=== PATIENT | female | born 1960 | race Caucasian/White ===

== ENCOUNTER 2017-04-10 18:19 | Emergency (ER) | payer OTHER ==
[2017-04-10 19:33] VITALS: BP 146/72
--- NOTE | 2017-04-10 20:29 | UC ---
Skin Complaint HPI - HPI Summary HPI Summary: Abscess left lower abdomen getting worse over the past 2-3 days - History of Current Complaint Chief Complaint: UCSkin Time Seen by Provider: 04/10/17 20:21 Stated Complaint: ABSCESS Hx Obtained From: Patient Hx Last Menstrual Period: erratic ?: No Onset/Duration: Gradual Onset, Lasting Days - 3, Still Present Timing: Constant Onset Severity: Moderate Current Severity: Moderate Pain Intensity: 6 Pain Scale Used: 0-10 Numeric Location: Discrete - left lower abdomen Character: Pain, Redness, Painful Aggravating: Touch Alleviating: Nothing Associated Signs & Symptoms: Positive: Negative - Allergy/Home Medications Allergies/Adverse Reactions: Allergies Allergy/AdvReac Type Severity Reaction Status Date / Time Penicillins [PCN] Allergy Unknown Anaphylatic Verified 04/10/17 19:34 Shock Codeine AdvReac Headache Verified 04/10/17 19:34 Erythromycin AdvReac GI Upset Verified 04/10/17 19:34 Home Medications: Home Medications Amitriptyline TAB* [Elavil TAB*] 04/10/17 [History] Review of Systems Constitutional: Negative Skin: Other - abscess left lower abdomen Eyes: Negative ENT: Negative Respiratory: Negative Cardiovascular: Negative Gastrointestinal: Negative Genitourinary: Negative Motor: Negative Neurovascular: Negative Musculoskeletal: Negative Neurological: Negative Psychological: Negative All Other Systems Reviewed And Are Negative: Yes PMH/Surg Hx/FS Hx/Imm Hx Previously Healthy: No - insomnia Endocrine History: Hypothyroidism - Surgical History Surgical History: Yes Surgery Procedure, Year, and Place: L knee surgery 2008 torn meniscus; tonsils; - Family History Known Family History: Positive: None - Social History Occupation: Employed Full-time Lives: With Family Alcohol Use: Rare Substance Use Type: None Smoking Status (MU): Heavy Every Day Tobacco Smoker Type: Cigarettes Amount Used/How Often: 1 1/2 PPD Length of Time of Smoking/Using Tobacco: 37 years Have You Smoked in the Last Year: Yes Household Exposure Type: Cigarettes Cessation Counseling: Patient Advised to Stop Physical Exam Triage Information Reviewed: Yes Appearance: Well-Appearing, No Pain Distress, Well-Nourished Vital Signs: Initial Vital Signs Temp 98.4 F 04/10/17 19:30 Pulse 68 04/10/17 19:30 Resp 18 04/10/17 19:30 BP 146/72 04/10/17 19:30 Pulse Ox 100 04/10/17 19:30 Vital Signs Reviewed: Yes Eye Exam: Normal Eyes: Positive: Conjunctiva Clear ENT Exam: Normal ENT: Positive: Normal ENT inspection, Hearing grossly normal, Pharynx normal. Negative: Nasal congestion, Nasal drainage, Trismus, Muffled/hoarse voice Dental Exam: Normal Neck exam: Normal Neck: Positive: Supple, Nontender, No Lymphadenopathy Respiratory Exam: Normal Respiratory: Positive: Chest non-tender, No respiratory distress, No accessory muscle use Cardiovascular Exam: Normal Cardiovascular: Positive: RRR, Pulses Normal, Brisk Capillary Refill Musculoskeletal Exam: Normal Musculoskeletal: Positive: Strength Intact, ROM Intact, No Edema Neurological Exam: Normal Neurological: Positive: Alert, Muscle Tone Normal Psychological Exam: Normal Psychological: Positive: Normal Response To Family Skin Exam: Normal Skin: Positive: Other - 3 cm erythema lower left abdomen with 1.5 cm fluctulant center Re-Evaluation - Re-Evaluation First Eval Re-Evaluation Time: 21:00 - moderate amont of purulent drainage dsd applied Change: Improved Course/Dx - Course Course Of Treatment: Warm compress, dressing, bactrim, education regarding elevated blood pressure - Differential Diagnoses - Skin Complaint Differential Diagnoses: Cellulitis, Contact Dermatitis, Other - Incision and Drainage of abscess left abdomen, high blood pressure with out dx of hypertension, nicotine dependent - Diagnoses Provider Diagnoses: Abscess, nicotine dependent, elevated BP with dx of hypertension Procedures - Incision and Drainage Site: left lower abdomen Anesthesia: Local - 2 cc of 1% lidocaine Instrument(s): Scalpel Packing: Other - none Discharge - Discharge Plan Condition: Stable Disposition: HOME Prescriptions: Sulfamethox/Trimethoprim DS* [Bactrim DS 800/160 TAB*] 1 tab PO BID #18 tab Patient Education Materials: Abscess (ED), DASH Eating Plan (ED), Hypertension (ED), Incision and Drainage (ED), Warm Compress or Soak (ED) Ref[place]: [facility] [Outside] - 2 Weeks
[2017-04-10] MEDS ORDERED: Lidocaine 1% MPF* 2 ML VIAL INJ ONE (20:31)
[2017-04-10] MEDS ORDERED: Sulfamethox/Trimethoprim DS 800/160* TAB PO ONE ×2 (20:36)
== END 2017-04-10 21:10 | disposition home or self-care (01) ==
LOC: UCEAST 18:19
DX: L02.211 Cutaneous abscess of abdominal wall (principal); F17.200 Nicotine dependence, unspecified, uncomplicated; I10 Essential (primary) hypertension
CPT/HCPCS: 99212; A9270-GY; G0463

== ENCOUNTER 2017-05-05 11:43 | Emergency (ER) | payer OTHER ==
[2017-05-05 11:56] VITALS: BP 143/80
--- NOTE | 2017-05-05 12:16 | UC ---
HPI BURN - HPI Summary HPI Summary: slept with a heat pack on left shoulder breast awoke with burn and blister to breast - History of Current Complaint Chief Complaint: UCBurn Stated Complaint: BURN ON BREAST Time Seen by Provider: 05/05/17 12:07 Hx Obtained From: Patient Hx Last Menstrual Period: erratic Occurred: Hours Ago Length of Exposure: Hours Onset Severity: Moderate Current Severity: Moderate Pain Intensity: 8 - ice applied with decrease pain Pain Scale Used: 0-10 Numeric Character: Direct Thermal Contact Aggravating: Other - shirt and bra rubbing Alleviating: Cool Soaks Associated Signs & Symptoms: Positive: Negative Occupational Injury: No - Allergy/Home Medications Allergies/Adverse Reactions: Allergies Allergy/AdvReac Type Severity Reaction Status Date / Time Penicillins [PCN] Allergy Unknown Anaphylatic Verified 05/05/17 11:50 Shock Codeine AdvReac Headache Verified 05/05/17 11:50 Erythromycin AdvReac GI Upset Verified 05/05/17 11:50 Home Medications: Home Medications Ibuprofen TAB* [Advil TAB*] 05/05/17 [History] PMH/Surg Hx/FS Hx/Imm Hx Endocrine History: Hypothyroidism - Surgical History Surgical History: Yes Surgery Procedure, Year, and Place: L knee surgery 2008 torn meniscus; tonsils; - Family History Known Family History: Positive: None Family History: no medical issues reported in family lineage - Social History Occupation: Employed Full-time Lives: With Family Alcohol Use: Rare Substance Use Type: None Smoking Status (MU): Heavy Every Day Tobacco Smoker Type: Cigarettes Amount Used/How Often: 1 1/2 PPD Length of Time of Smoking/Using Tobacco: 37 years Have You Smoked in the Last Year: Yes Household Exposure Type: Cigarettes Cessation Counseling: Patient Advised to Stop - Immunization History Most Recent Tetanus Shot: less then 10 years Hx Tetanus, Diphtheria Vaccination: Yes Vaccination Up to Date: Yes Review of Systems Constitutional: Negative Skin: Negative, Other - blister on left breat right upper quad. of breast, some erythema Eyes: Negative ENT: Negative Respiratory: Negative Cardiovascular: Negative Gastrointestinal: Negative Genitourinary: Negative Motor: Negative Neurovascular: Negative Musculoskeletal: Negative Neurological: Negative Psychological: Negative All Other Systems Reviewed And Are Negative: Yes Physical Exam Triage Information Reviewed: Yes Appearance: Well-Appearing, No Pain Distress, Well-Nourished Vital Signs: Initial Vital Signs Temp 97.1 F 05/05/17 11:46 Pulse 72 05/05/17 11:46 Resp 12 05/05/17 11:46 BP 143/80 05/05/17 11:46 Pulse Ox 99 05/05/17 11:46 Vital Signs Reviewed: Yes Eye Exam: Normal Eyes: Positive: Conjunctiva Clear ENT Exam: Normal ENT: Positive: Normal ENT inspection, Hearing grossly normal, Nasal congestion. Negative: Tonsillar swelling, Tonsillar exudate Dental Exam: Normal Neck exam: Normal Neck: Positive: Supple, Nontender Respiratory Exam: Normal Respiratory: Positive: Chest non-tender, No respiratory distress, No accessory muscle use Cardiovascular Exam: Normal Cardiovascular: Positive: RRR, Pulses Normal, Brisk Capillary Refill Musculoskeletal Exam: Normal Musculoskeletal: Positive: Strength Intact, ROM Intact, No Edema Neurological Exam: Normal Neurological: Positive: Alert, Muscle Tone Normal Psychological Exam: Normal Skin: Positive: Other - partial thickness burn right medial aspect of breat intact blister at 9:00 just next to nipple Burn Calculation - Trunk / Ant. 18% Trunk / Ant. % 1st De - less than 1% Trunk / Ant. % 2nd De - leass than 1% - Total 1st Deg Total: 1 2nd Deg Total: 1 Total % BSA: 2 - [place] Formula for Fluid Resuscitation Weight: 72.575 kg Total % BSA 2nd & 3rd Degree: 1 24 -Hour Fluid Replacement: 290.3 Course/Dx Burn - Course Course Of Treatment: bactrim, silvadene, acute wound care, ibuprofen and cool compress follow bp and smoking as well with pcp - Differential Dx - Burn Differential Diagnoses: Chemical Burn, Direct Contact Thermal Burn, Electrical Burn - Diagnoses Clinic Provider Diagnoses: thermal lurn less than 1% to left breast, highblood pressure with out dx of hypertension, nicotine dependent Discharge - Discharge Plan Condition: Stable Disposition: HOME Patient Education Materials: Superficial Burn (ED), Second Degree Burn (ED), How to Stop Smoking (ED), Hypertension (ED) Referrals: Antonino Gordon MD [Primary Care Provider] - 1 Week
== END 2017-05-05 12:29 | disposition home or self-care (01) ==
LOC: UCEAST 11:43
DX: T21.21XA Burn of second degree of chest wall, initial encounter (principal); T31.0 Burns involving less than 10% of body surface; X19.XXXA Contact with other heat and hot substances, initial encounter; Y93.9 Activity, unspecified; Y92.9 Unspecified place or not applicable; E03.9 Hypothyroidism, unspecified; Z88.1 Allergy status to other antibiotic agents; Z88.5 Allergy status to narcotic agent; Z88.0 Allergy status to penicillin; F17.210 Nicotine dependence, cigarettes, uncomplicated
CPT/HCPCS: 99212; G0463

== ENCOUNTER 2017-05-18 15:51 | Emergency (ER) | payer OTHER ==
[2017-05-18 16:00] VITALS: BP 127/76
--- NOTE | 2017-05-18 16:06 | UC ---
HPI BURN - HPI Summary HPI Summary: 05/05/17 came to urgent care after sleeping with a hot pack on her left chest, returns today as it has resolved all but a quarter size area on left breast at 7 :00 does have about 3 mm of surrounding erythema and is tender to touch no drainage-patient reports that she got open light cleaner on her breast-with burning a few days back where unhealing area is at - History of Current Complaint Chief Complaint: UCSkin Stated Complaint: INFECTED BREST Time Seen by Provider: 05/18/17 16:00 Hx Obtained From: Patient Hx From Patient Unobtainable Due To: Dementia Hx Last Menstrual Period: erratic Occurred: Minutes Ago Length of Exposure: Unknown Onset Severity: Moderate Current Severity: Moderate Pain Intensity: 7 Pain Scale Used: 0-10 Numeric Location: Trunk - left breat about 7;00 Character: Direct Thermal Contact, Scald, Chemical, Blisters: Ruptured Alleviating: Cool Soaks, Nothing Associated Signs & Symptoms: Positive: Negative Occupational Injury: Yes - Allergy/Home Medications Allergies/Adverse Reactions: Allergies Allergy/AdvReac Type Severity Reaction Status Date / Time Penicillins [PCN] Allergy Unknown Anaphylatic Verified 05/05/17 11:50 Shock Codeine AdvReac Headache Verified 05/05/17 11:50 Erythromycin AdvReac GI Upset Verified 05/05/17 11:50 PMH/Surg Hx/FS Hx/Imm Hx Previously Healthy: No Endocrine History: Hypothyroidism - Surgical History Surgical History: Yes Surgery Procedure, Year, and Place: L knee surgery 2008 torn meniscus; tonsils; - Family History Known Family History: Positive: None Family History: no medical issues reported in family lineage - Social History Occupation: Employed Full-time Lives: With Family Alcohol Use: Rare Substance Use Type: None Smoking Status (MU): Heavy Every Day Tobacco Smoker Type: Cigarettes Amount Used/How Often: 1 1/2 PPD Length of Time of Smoking/Using Tobacco: 37 years Have You Smoked in the Last Year: Yes Household Exposure Type: Cigarettes Cessation Counseling: Counseled 3+Min - 10 Min - Immunization History Most Recent Tetanus Shot: less then 10 years Hx Tetanus, Diphtheria Vaccination: Yes Vaccination Up to Date: Yes Review of Systems Constitutional: Negative Skin: Other - 25 cents size eschar on left breast with surrounding erythema, no fever or drainage, is tender to touch Eyes: Negative ENT: Negative Respiratory: Negative Cardiovascular: Negative Gastrointestinal: Negative Genitourinary: Negative Motor: Negative Neurovascular: Negative Musculoskeletal: Negative Neurological: Negative Psychological: Negative All Other Systems Reviewed And Are Negative: Yes Physical Exam Triage Information Reviewed: Yes Appearance: Well-Appearing, No Pain Distress, Well-Nourished Vital Signs: Initial Vital Signs Temp 97.8 F 05/18/17 15:55 Pulse 81 05/18/17 15:55 Resp 18 05/18/17 15:55 BP 127/76 05/18/17 15:55 Pulse Ox 97 05/18/17 15:55 Vital Signs Reviewed: Yes Eye Exam: Normal Eyes: Positive: Conjunctiva Clear ENT Exam: Normal ENT: Positive: Normal ENT inspection, Hearing grossly normal. Negative: Nasal congestion, Nasal drainage, Trismus, Muffled/hoarse voice Dental Exam: Normal Neck exam: Normal Neck: Positive: Supple, Nontender Respiratory Exam: Normal Respiratory: Positive: Chest non-tender, No respiratory distress, No accessory muscle use Cardiovascular Exam: Normal Cardiovascular: Positive: RRR, No Murmur, Pulses Normal, Brisk Capillary Refill Musculoskeletal Exam: Normal Musculoskeletal: Positive: Strength Intact, ROM Intact, No Edema Neurological Exam: Normal Neurological: Positive: Alert, Muscle Tone Normal Psychological Exam: Normal Skin Exam: Normal Skin: Positive: Other - unhealing wound with erythema left breast as described Burn Calculation - [place] Formula for Fluid Resuscitation Weight: 74.843 kg 24 -Hour Fluid Replacement: 0.0 Re-Evaluation - Re-Evaluation First Eval Change: Unchanged - mepilex dressing applied, Course/Dx Burn - Course Course Of Treatment: surgeon office for follow up next 1-2 days, leave dressing on and change 3 days prn, stop silvadene add doxycycline - Differential Dx - Burn Differential Diagnoses: Direct Contact Thermal Burn - Diagnoses Clinic Provider Diagnoses: infection of thermal burn left breast, nicotine dependent Discharge - Discharge Plan Condition: Stable Disposition: HOME Prescriptions: DOXYcycline CAP(*) [DOXYcycline 100MG CAP(*)] 100 mg PO BID #20 cap Hydrocodone-Acetaminophen [Hydrocodone/Acetaminophen 5-325 mg] 1 tab PO Q6H #15 tab MDD 4 Patient Education Materials: How to Stop Smoking (ED), Wound Infection (ED) Forms: *Work Release Referrals: Corey Willis MD [Medical Doctor] - 2 Days Antonino Gordon MD [Primary Care Provider] -
== END 2017-05-18 16:47 | disposition home or self-care (01) ==
LOC: UCEAST 15:51
DX: T21.21XD Burn of second degree of chest wall, subsequent encounter (principal); B96.89 Other specified bacterial agents as the cause of diseases classified elsewhere; X19.XXXD Contact with other heat and hot substances, subsequent encounter; E03.9 Hypothyroidism, unspecified; Z88.1 Allergy status to other antibiotic agents; Z88.5 Allergy status to narcotic agent; Z88.0 Allergy status to penicillin; F17.210 Nicotine dependence, cigarettes, uncomplicated; Z71.6 Tobacco abuse counseling
CPT/HCPCS: 99212; G0463

== ENCOUNTER 2017-07-14 09:27 | Emergency (ER) | payer OTHER | END 2017-07-14 10:31 | disposition left against medical advice (07) | LOC: UCEAST 09:27 | DX: Z53.21 Procedure and treatment not carried out due to patient leaving prior to being seen by health care provider (principal) ==

== ENCOUNTER 2017-09-20 09:09 | Emergency (ER) | payer OTHER ==
[2017-09-20 09:36] VITALS: BP 124/64
--- NOTE | 2017-09-20 10:36 | UC ---
Throat Pain/Nasal Toan HPI - HPI Summary HPI Summary: Patient presents to the with CC of nasal congestion. She states she has sinus infections a few times per year. Symptoms began 1 week ago and have been worsening. Notes to pain in the bilateral sinuses which radiate to the frontal sinus. Denies ear pain, but notes to ear fullness in the L ear. Denies fevers , sweats and chills. Smoker. Allergy to penicillins and erythromycin. Endorses sick contacts. Pain is 4/10 and constant. Endorses cough, but denies mucous production. - History of Current Complaint Chief Complaint: UCGeneralIllness Stated Complaint: CONGESTED, COUGH, FEVER Time Seen by Provider: 09/20/17 09:47 Hx Obtained From: Patient Hx Last Menstrual Period: erratic ?: Yes Onset/Duration: Sudden Onset Severity: Moderate Pain Intensity: 4 Pain Scale Used: 0-10 Numeric Cough: Nonproductive Associated Signs & Symptoms: Positive: Negative - Epiglottits Risk Factors Epiglottis Risk Factors: Negative - Allergies/Home Medications Allergies/Adverse Reactions: Allergies Allergy/AdvReac Type Severity Reaction Status Date / Time Penicillins [PCN] Allergy Unknown Anaphylatic Verified 09/20/17 09:36 Shock Codeine AdvReac Headache Verified 09/20/17 09:36 Erythromycin AdvReac GI Upset Verified 09/20/17 09:36 PMH/Surg Hx/FS Hx/Imm Hx Previously Healthy: Yes - Surgical History Surgical History: Yes Surgery Procedure, Year, and Place: L knee surgery 2008 torn meniscus; tonsils; - Family History Known Family History: Positive: None Family History: no medical issues reported in family lineage - Social History Occupation: Employed Full-time Lives: With Family Alcohol Use: Rare Substance Use Type: None Smoking Status (MU): Heavy Every Day Tobacco Smoker Type: Cigarettes Amount Used/How Often: 1 1/2 PPD Length of Time of Smoking/Using Tobacco: 37 years Have You Smoked in the Last Year: Yes Household Exposure Type: Cigarettes - Immunization History Most Recent Tetanus Shot: less then 10 years Hx Tetanus, Diphtheria Vaccination: Yes Vaccination Up to Date: Yes Review of Systems Constitutional: Negative Skin: Negative ENT: Ear Ache, Sinus Congestion, Sinus Pain/Tenderness Respiratory: Cough Cardiovascular: Negative Motor: Negative Neurovascular: Negative Musculoskeletal: Negative Neurological: Negative Is Patient Immunocompromised?: No All Other Systems Reviewed And Are Negative: Yes Physical Exam Triage Information Reviewed: Yes Appearance: Well-Appearing, Well-Nourished Vital Signs: Initial Vital Signs Temp 98.4 F 09/20/17 09:34 Pulse 87 09/20/17 09:34 Resp 14 09/20/17 09:34 BP 124/64 09/20/17 09:34 Pulse Ox 97 09/20/17 09:34 Vital Signs Reviewed: Yes Eye Exam: Normal Eyes: Positive: Conjunctiva Clear ENT: Positive: Hearing grossly normal, Nasal congestion, Sinus tenderness. Negative: Pharyngeal erythema, Nasal drainage, Tonsillar swelling, Tonsillar exudate, Hoarse voice, Dental tenderness Neck exam: Normal Neck: Positive: Supple, No Lymphadenopathy Respiratory Exam: Normal Respiratory: Positive: Chest non-tender, Wheezing - baseline per patient d/t smoking Cardiovascular: Positive: RRR Neurological Exam: Normal Neurological: Positive: Alert Psychological Exam: Normal Psychological: Positive: Normal Response To Family Skin Exam: Normal Throat Pain/Nasal Course/Dx - Course Course Of Treatment: During the course of treatment, patient endorses sinus pressure and tenderness. She is given doxycycline d/t allergies for sinus infection. She will follow up with her PCP. - Differential Dx/Diagnosis Differential Diagnosis/HQI/PQRI: URI Provider Diagnoses: Sinusitis Discharge - Discharge Plan Condition: Stable Disposition: HOME Prescriptions: DOXYcycline CAP(*) [DOXYcycline 100MG CAP(*)] 100 mg PO BID #10 cap Patient Education Materials: Sinusitis (ED) Referrals: Antonino Gordon MD [Primary Care Provider] - Additional Instructions: Please follow up with PCP if symptoms persist
== END 2017-09-20 10:37 | disposition home or self-care (01) ==
LOC: UCEAST 09:09
DX: J32.9 Chronic sinusitis, unspecified (principal); F17.210 Nicotine dependence, cigarettes, uncomplicated; Z88.0 Allergy status to penicillin; Z88.1 Allergy status to other antibiotic agents; Z88.5 Allergy status to narcotic agent
CPT/HCPCS: 99212; G0463

== ENCOUNTER 2017-09-30 19:53 | Emergency (ER) | payer OTHER ==
--- NOTE | 2017-09-30 20:46 | RAD ---
INDICATION: Cough. Status post radiation to breasts COMPARISON: None TECHNIQUE: PA and lateral dual-energy views were obtained. FINDINGS: Bones/Soft Tissues: There are no acute bony findings. Cardiomediastinal: The cardiomediastinal silhouette is normal. Lungs: There is mild bibasilar atelectasis. The mid and upper lung champion are clear Pleura: There are no pleural effusions. Other: None IMPRESSION: MILD BIBASILAR ATELECTASIS.
[2017-09-30 21:02] LABS: ABS Basophils 0.2 10^3/ul (0-0.2); ABS Eosinophils 0.3 10^3/ul (0-0.6); ABS Lymphocytes 3.4 10^3/ul (1.0-4.8); ABS Monocytes 0.8 10^3/ul (0-0.8); ABS Neutrophils 7.8 10^3/ul (1.5-7.7); ABS Nucleated RBC 0 10^3/ul; Eosinophil % 2.5 % (0-6); Hematocrit 42 % (35-47); Hemoglobin 14.1 g/dl (12.0-16.0); Mean Corpuscular HGB Conc 34 g/dl (31-36); Mean Corpuscular Hemoglobin 30 pg (27-31); Mean Corpuscular Volume 87 fL (80-97); Mean Platelet Volume 9 um3 (7.4-10.4); Nucleated Red Blood Cells % 0; Platelet Count 243 10^3/ul (150-450); Red Cell Distribution Width 15 % (10.5-15); White Blood Count 12.5 10^3/ul (3.5-10.8)
[2017-09-30 21:16] LABS: EGFR Non-African American 71.4 (>60)
[2017-09-30] MEDS ORDERED: Iohexol 350* (CONTRAST) 500 ML MDV IV ONE (21:27)
[2017-10-01] MEDS ORDERED: Levofloxacin TAB* 500 MG PO ONE (00:09)
[2017-10-01 00:46] VITALS: BP 130/63
--- NOTE | 2017-10-01 07:39 | RAD ---
INDICATION: Pleuritic chest pain, elevated d-dimer. COMPARISON: Comparison is made with a prior chest x-ray study from September 30, 2017. TECHNIQUE: A CT angiogram of the chest was performed with intravenous following intravenous injection of 66 ml of Omnipaque 350 nonionic contrast. Contiguous axial sections were obtained from the lung apices through the lung bases. Images were reconstructed in the coronal and sagittal planes. FINDINGS: There is relatively homogeneous opacification of the pulmonary arteries. No intraluminal filling defect or pulmonary embolism is seen. The heart is within normal limits in size. No pericardial effusion is present. The thoracic aorta is normal in caliber and demonstrates homogeneous contrast opacification. There are mildly prominent precarinal and subcarinal lymph nodes measuring up to 1.5 cm in transverse dimension. No enlarged hilar lymph nodes are seen. There are mild dependent bilateral lower lobe infiltrates left greater than right and a trace left pleural effusion. There is mild centrilobular emphysematous change. Images of the abdomen abdomen demonstrate fatty infiltration of the liver without acute finding. No significant focal osseous normality is seen. IMPRESSION: 1. THERE WAS NO EVIDENCE FOR PULMONARY EMBOLISM. 2. SMALL DEPENDENT BILATERAL LOWER LOBE INFILTRATES AND TRACE LEFT PLEURAL EFFUSION. 3. MILD ENLARGEMENT OF MEDIASTINAL LYMPH NODES.
--- NOTE | 2017-10-01 20:36 | ED ---
Coreen Landeros Emily, scribed for Vasiliy Benson MD on 09/30/17 at 2030 . HPI Chest Pain - HPI Summary HPI Summary: This patient is a 57 year old F BIBA presenting to [facility] with a chief complaint of sharp left-sided CP that began 3 days ago. Pain worsened HEALTHCARE MARKET CONSULTANT. The patient rates the pain a 4/10. Symptoms aggravated by deep breaths and movement. Symptoms alleviated by nothing. Patient reports nonproductive cough and SOB. Patient denies fever, chills, night sweats, abd pain, nausea, vomiting, urinary symptoms, and bowel symptoms. - History of Current Complaint Time Seen by Provider: 09/30/17 20:14 Hx Obtained From: Patient Hx Last Menstrual Period: erratic Onset/Duration: Started Days Ago, Still Present Timing: Constant Initial Severity: Moderate Current Severity: Moderate Pain Intensity: 4 Pain Scale Used: 0-10 Numeric Chest Pain Location: Left Lateral Chest Pain Radiates: No Character: Sharp/Stabbing Aggravating Factor(s): Movement, Deep Breaths Alleviating Factor(s): Nothing Associated Signs and Symptoms: Positive: Other: - Positive nonproductive cough and SOB. Negative fever, chills, night sweats, abd pain, nausea, vomiting, urinary symptoms, and bowel symptoms - Allergy/Home Medications Allergies/Adverse Reactions: Allergies Allergy/AdvReac Type Severity Reaction Status Date / Time Penicillins [PCN] Allergy Unknown Anaphylatic Verified 09/20/17 09:36 Shock Codeine AdvReac Headache Verified 09/20/17 09:36 Erythromycin AdvReac GI Upset Verified 09/20/17 09:36 PMH/Surg Hx/FS Hx/Imm Hx Previously Healthy: No Endocrine/Hematology History: Reports: Hx Thyroid Disease, Hx Anemia Respiratory History: Reports: Hx Asthma, Hx Pneumonia, Hx Seasonal Allergies GI History: Reports: Hx Gastroesophageal Reflux Disease History: Reports: Hx Kidney Infection Musculoskeletal History: Reports: Hx Arthritis - Osteoarthritis, Hx Bursitis, Hx Fibromyalgia, Hx Orthopedic Injury Sensory History: Reports: Hx Contacts or Glasses Opthamlomology History: Reports: Hx Contacts or Glasses Neurological History: Reports: Hx Migraine Psychiatric History: Reports: Hx Anxiety, Hx Depression, Hx Panic Disorder, Hx Community Mental Health Tx - Surgical History Surgery Procedure, Year, and Place: L knee surgery 2008 torn meniscus; tonsils; Infectious Disease History: Denies: History Other Infectious Disease - Family History Known Family History: Positive: None Family History: no medical issues reported in family lineage - Social History Occupation: Employed Full-time Lives: Alone Alcohol Use: Rare Substance Use Type: Reports: None Smoking Status (MU): Heavy Every Day Tobacco Smoker Type: Cigarettes Amount Used/How Often: 1 1/2 PPD Length of Time of Smoking/Using Tobacco: 37 years Have You Smoked in the Last Year: Yes Review of Systems Negative: Fever, Chills, Skin Diaphoresis Positive: Shortness Of Breath, Cough Gastrointestinal: Negative Negative: Abdominal Pain, Vomiting, Nausea Genitourinary: Negative All Other Systems Reviewed And Are Negative: Yes Physical Exam - Summary Physical Exam Summary: Appearance: Well-appearing, Well-nourished Skin: Warm, Dry, No rash Eyes: Normal, PERRL, EOMI, sclera anicteric ENT: Normal Neck: Supple, nontender, no adenopathy Respiratory: Rales at left lower lung and right lower lung. Cardiovascular: S1, S2, no murmur, no rub, no gallop Abdomen: Soft, nontender, no organomegaly Bowel sounds: Present Musculoskeletal: Normal, Strength/ROM Intact, no edema, pulses symmetrical Neurological: Normal, A&Ox3, cranial nerves II-XII WNL, follows commands, gait not tested, sensation intact to pin and light touch Psychiatric: affect normal, behavior appropriate, dressed appropriately, judgment intact Triage Information Reviewed: Yes Vital Signs Reviewed: Yes Diagnostics - Laboratory Result Diagrams: 09/30/17 20:50 09/30/17 20:50 Lab Statement: Any lab studies that have been ordered have been reviewed, and results considered in the medical decision making process. - Radiology CXR Radiology Interpretation Completed By: Radiologist - CXR reveals, per radiologist, mild bibasilar atelectasis. ED physician has reviewed this radiology report. - CT CTA Chest CT Interpretation Completed By: Radiologist - CT CTA chest reveals, per radiologist, no evidence for pulmonary embolism or aortic dissection. Patch opacities in bilateral lower lobes may just be due to dependent atelectasis. Cannot exclude concurrent infiltrates. Scattered atelectasis and fibrotic changes in the remainder of the lungs with mild centrilobular emphysema. Tiny left pleural effusion. No pneumothorax. Mild mediastinal adenopathy. Possible hepatic steatosis. ED physician has reviewed this radiology report. - EKG 2033 Cardiac Rate: NL EKG Rhythm: Sinus Rhythm - 87 BPM EKG Interpretation: Low voltage. Prolonged QT interval Chest Pain Course/Dx - Course Assessment/Plan: This patient is a 57 year old F BIBA presenting to [facility] with a chief complaint of sharp left-sided CP that began 3 days ago. Pain worsened HEALTHCARE MARKET CONSULTANT. The patient rates the pain a 4/10. Rales at left lower lung and right lower lung. No adenopathy. No palpable chord. An EKG taken at 2032 reveals nml sinus rhythm at 87 BPM, low voltage, and prolonged QT interval. CXR reveals, per radiologist, mild bibasilar atelectasis. CT CTA chest reveals, per radiologist, no evidence for pulmonary embolism or aortic dissection. Patch opacities in bilateral lower lobes may just be due to dependent atelectasis. Cannot exclude concurrent infiltrates. Scattered atelectasis and fibrotic changes in the remainder of the lungs with mild centrilobular emphysema. Tiny left pleural effusion. No pneumothorax. Mild mediastinal adenopathy. Possible hepatic steatosis. Bloodwork obtained. In the ED course the patient was given contrast. Patient will be discharged with prescription for Proventil and Levaquin with follow up from PCP. The patient is agreeable with this plan. - Diagnoses Provider Diagnoses: bibasilar pneumonia Discharge - Discharge Plan Condition: Good Disposition: HOME Prescriptions: Albuterol Sulfate [Proventil Hfa] 108 mcg IN Q6HR PRN 30 Days #1 aer PRN Reason: Cough Levofloxacin TAB* [Levaquin TAB*] 500 mg PO DAILY #5 tab Referrals: Antonino Gordon MD [Primary Care Provider] - The documentation as recorded by the Coreen villalpando Emily accurately reflects the service I personally performed and the decisions made by , Vasiliy Benson MD.
== END 2017-10-01 00:44 | disposition home or self-care (01) ==
LOC: ED 19:53
DX: J18.9 Pneumonia, unspecified organism (principal); R07.9 Chest pain, unspecified; R05 Cough; R06.02 Shortness of breath; F17.210 Nicotine dependence, cigarettes, uncomplicated
CPT/HCPCS: 36415; 71046; 71275; 80053; 83735; 85025; 85379; 93005; 99284; Q9967

== ENCOUNTER 2017-12-31 19:20 | Emergency (ER) | payer OTHER ==
--- NOTE | 2017-12-31 19:55 | UC ---
Respiratory Complaint HPI - HPI Summary HPI Summary: 57 y/o WF presents with fatigue, cough, and body aches that began today. She called the patient liaison doctor at his PCP's office and he said her symptoms were likely viral and to get tested for the flu. She is here tonight for a flu test because she wants to know if she has the flu. - History of Current Complaint Chief Complaint: UCRespiratory Stated Complaint: COUGH Time Seen by Provider: 12/31/17 19:55 Hx Obtained From: Patient Hx Last Menstrual Period: erratic Onset/Duration: Sudden Onset Severity Initially: Mild Severity Currently: Mild Pain Intensity: 4 Pain Scale Used: 0-10 Numeric Character: Cough: Nonproductive - Allergies/Home Medications Allergies/Adverse Reactions: Allergies Allergy/AdvReac Type Severity Reaction Status Date / Time codeine Allergy Headache Verified 12/31/17 20:01 Penicillins Allergy Anaphylatic Verified 12/31/17 20:01 Shock erythromycin Allergy GI Upset Uncoded 12/31/17 20:01 Home Medications: Home Medications Gabapentin 300 mg PO BEDTIME 12/31/17 [History Confirmed 12/31/17] PMH/Surg Hx/FS Hx/Imm Hx Endocrine History: Hypothyroidism Cardiovascular History: Hypertension - Surgical History Surgical History: Yes Surgery Procedure, Year, and Place: L knee surgery 2008 torn meniscus; tonsils; - Family History Known Family History: Positive: None Family History: no medical issues reported in family lineage - Social History Occupation: Employed Full-time Lives: With Family Alcohol Use: Rare Substance Use Type: None Smoking Status (MU): Heavy Every Day Tobacco Smoker Type: Cigarettes Amount Used/How Often: 1 1/2 PPD Length of Time of Smoking/Using Tobacco: 37 years Have You Smoked in the Last Year: Yes Household Exposure Type: Cigarettes - Immunization History Most Recent Tetanus Shot: less then 10 years Hx Tetanus, Diphtheria Vaccination: Yes Vaccination Up to Date: Yes Review of Systems Constitutional: Fatigue, Other - Body aches Skin: Negative Eyes: Negative ENT: Negative Respiratory: Cough Cardiovascular: Negative Gastrointestinal: Negative Musculoskeletal: Negative Neurological: Negative Psychological: Negative All Other Systems Reviewed And Are Negative: Yes Physical Exam - Summary Physical Exam Summary: GENERAL: NAD. WDWN. No pain distress. SKIN: No rashes, sores, ulcers, masses, lesions. HEENT: Head: AT/NC Eyes: EOM intact. Conjunctiva clear without inflammation or discharge. Ears: Hearing grossly normal. TMs intact, no bulging, erythema, or edema. Nose: Nasal mucosa pink and moist. NTTP maxillary and frontal sinus. Throat: Posterior oropharynx without exudates, erythema, or tonsillar enlargement. Uvula midline. NECK: Supple. Nontender. No lymphadenopathy. CHEST: CTAB. No r/r/w. No accessory muscle use. Breathing comfortably and in no distress. CV: RRR. Without m/r/g. Pulses intact. Brisk cap refill. NEURO: Alert. CN II-XII grossly intact. PSYCH: Age appropriate behavior. Triage Information Reviewed: Yes Respiratory Course/Dx - Course Course Of Treatment: POC flu negative. Viral illness - Differential Dx/Diagnosis Provider Diagnoses: Viral illness Discharge - Sign-Out/Discharge Documenting (check all that apply): Discharge - Discharge Plan Condition: Stable Disposition: HOME Patient Education Materials: Viral Syndrome (ED) Referrals: Antonino Gordon MD [Primary Care Provider] - Additional Instructions: If you develop a fever, shortness of breath, chest pain, new or worsening symptoms - please call your PCP or go to the ED. - Billing Disposition and Condition Condition: STABLE Disposition: HOME
[2017-12-31 20:00] VITALS: BP 113/65
== END 2017-12-31 20:30 | disposition home or self-care (01) ==
LOC: UCEAST 19:20
DX: B34.9 Viral infection, unspecified (principal); E03.9 Hypothyroidism, unspecified; I10 Essential (primary) hypertension; Z88.1 Allergy status to other antibiotic agents; Z88.5 Allergy status to narcotic agent; Z88.0 Allergy status to penicillin; F17.210 Nicotine dependence, cigarettes, uncomplicated
CPT/HCPCS: 87502; 99211; G0463

== ENCOUNTER 2018-08-23 10:37 | Emergency (ER) | payer OTHER ==
[2018-08-23 11:10] VITALS: BP 160/87
--- NOTE | 2018-08-23 11:28 | UC ---
UC General HPI - HPI Summary HPI Summary: had constipation last week for 1-2 days. next day noticed blood on tissue after BM. today had blood tinged mucousy BM. no abdominal pain - History of Current Complaint Chief Complaint: UCAbdominalPain Stated Complaint: PERSONAL Time Seen by Provider: 08/23/18 10:53 Hx Obtained From: Patient Hx Last Menstrual Period: erratic Onset/Duration: Gradual Onset Current Severity: Mild Pain Intensity: 2 Associated Signs & Symptoms: Negative: Fever, Nausea, Vomiting, Weakness - Allergy/Home Medications Allergies/Adverse Reactions: Allergies Allergy/AdvReac Type Severity Reaction Status Date / Time codeine Allergy Headache Verified 08/23/18 10:46 Penicillins Allergy Anaphylatic Verified 08/23/18 10:46 Shock erythromycin Allergy GI Upset Uncoded 08/23/18 10:46 Home Medications: Home Medications buPROPion HCl [Wellbutrin Sr] 200 mg PO DAILY 08/23/18 [History Confirmed ] PMH/Surg Hx/FS Hx/Imm Hx Previously Healthy: Yes Endocrine History: Hypothyroidism Respiratory History: Asthma Psychological History: Depression - Surgical History Surgical History: Yes Surgery Procedure, Year, and Place: L knee surgery 2007 torn meniscus; tonsils; - Family History Known Family History: Positive: None Negative: Hypertension Family History: no medical issues reported in family lineage - Social History Occupation: Employed Full-time Lives: With Family Alcohol Use: Rare Substance Use Type: None Smoking Status (MU): Heavy Every Day Tobacco Smoker Type: Cigarettes Amount Used/How Often: 1 ppd Length of Time of Smoking/Using Tobacco: 37 years Have You Smoked in the Last Year: Yes Household Exposure Type: Cigarettes - Immunization History Most Recent Tetanus Shot: less then 10 years Hx Tetanus, Diphtheria Vaccination: Yes Vaccination Up to Date: Yes Review of Systems All Other Systems Reviewed And Are Negative: Yes Constitutional: Negative: Fever, Chills Skin: Positive: Negative. Negative: Rash ENT: Positive: Negative Respiratory: Positive: Negative Cardiovascular: Positive: Negative Gastrointestinal: Positive: Other - constipation and blood in stool Genitourinary: Positive: Negative Neurological: Positive: Negative Psychological: Positive: Negative Is Patient Immunocompromised?: No Physical Exam Triage Information Reviewed: Yes Appearance: Well-Appearing, Obese Vital Signs: Initial Vital Signs Temp 97.8 F 08/23/18 10:48 Pulse 78 08/23/18 10:48 Resp 18 08/23/18 10:48 BP 160/87 08/23/18 10:48 Pulse Ox 95 08/23/18 10:48 Vital Signs Reviewed: Yes ENT: Positive: Normal ENT inspection Respiratory Exam: Normal Cardiovascular Exam: Normal Abdomen Description: Positive: Nontender, No Organomegaly, Soft, Other: - no hemorrhoid or bleeding seen on rectal exam Bowel Sounds: Positive: Present Psychological Exam: Normal Skin Exam: Normal Course/Dx - Differential Dx - Multi-Symptom Differential Diagnoses: Urinary Tract Infection, Other - gastroenteritis, rectal bleeding, hemorrhoid - Diagnoses Provider Diagnosis: Rectal bleeding, Constipation Discharge - Sign-Out/Discharge Documenting (check all that apply): Patient Departure All imaging exams completed and their final reports reviewed: No Studies - Discharge Plan Condition: Stable Disposition: HOME Patient Education Materials: Rectal Bleeding (ED) Referrals: Sj Chung, OTOLARYNGOLOGY SURGEON [Primary Care Provider] - 1 Week (rechekc blood pressure and rectal bleeding) Additional Instructions: drink plenty of fluids stay on bland diet try Pepto Bismol for diarrhea should it occur report to ER if you experience abdominal pain, fever or worsening bleeding - Billing Disposition and Condition Condition: STABLE Disposition: Home
== END 2018-08-23 11:50 | disposition home or self-care (01) ==
LOC: UCEAST 10:37
DX: K62.5 Hemorrhage of anus and rectum (principal); K59.00 Constipation, unspecified; Z88.0 Allergy status to penicillin; Z88.5 Allergy status to narcotic agent; Z88.1 Allergy status to other antibiotic agents; F17.210 Nicotine dependence, cigarettes, uncomplicated
CPT/HCPCS: 99212; G0463

== ENCOUNTER 2018-11-02 18:14 | Emergency (ER) | payer OTHER ==
[2018-11-02 19:24] VITALS: BP 135/83
--- NOTE | 2018-11-02 19:37 | UC ---
Headache HPI - HPI Summary HPI Summary: 58-year-old woman comes in with a chief complaint of left maxillary left orbital pain and green rhinorrhea. Pains been going on for 2-3 days. Patient has chronic sinus issues she uses Flomax daily. No fevers. Patient denies any eye pain. Feels like the pain is in the left maxillary area and behind the eye. No dental pain or dental infection. She also has some mild pressure in the left ear. - History Of Current Complaint Chief Complaint: UCGeneralIllness Stated Complaint: HEADACHE Time Seen by Provider: 11/02/18 19:17 Hx Last Menstrual Period: erratic Pain Intensity: 4 - Allergies/Home Medications Allergies/Adverse Reactions: Allergies Allergy/AdvReac Type Severity Reaction Status Date / Time codeine Allergy Headache Verified 11/02/18 19:24 Penicillins Allergy Anaphylatic Verified 11/02/18 19:24 Shock erythromycin Allergy GI Upset Uncoded 11/02/18 19:24 PMH/Surg Hx/FS Hx/Imm Hx Previously Healthy: Yes Endocrine History: Hypothyroidism Respiratory History: Asthma - Surgical History Surgical History: Yes Surgery Procedure, Year, and Place: L knee surgery 2008 torn meniscus; tonsils; - Family History Known Family History: Positive: None Negative: Hypertension Family History: no medical issues reported in family lineage - Social History Alcohol Use: Rare Substance Use Type: None Smoking Status (MU): Heavy Every Day Tobacco Smoker Type: Cigarettes Amount Used/How Often: 1 ppd Length of Time of Smoking/Using Tobacco: 37 years Have You Smoked in the Last Year: Yes Household Exposure Type: Cigarettes - Immunization History Most Recent Tetanus Shot: less then 10 years Hx Tetanus, Diphtheria Vaccination: Yes Vaccination Up to Date: Yes Review of Systems All Other Systems Reviewed And Are Negative: Yes Constitutional: Positive: Negative Skin: Positive: Negative Eyes: Positive: Other - SEE HPI ENT: Positive: Ear Ache, Nasal Discharge, Sinus Congestion, Sinus Pain/ Tenderness Respiratory: Positive: Shortness Of Breath Cardiovascular: Positive: Negative Gastrointestinal: Positive: Negative Motor: Positive: Negative Neurovascular: Positive: Negative Musculoskeletal: Positive: Negative Neurological: Positive: Headache. Negative: Weakness, Paresthesia, Numbness Psychological: Positive: Negative Is Patient Immunocompromised?: No Physical Exam Triage Information Reviewed: Yes Appearance: Well-Nourished, Ill-Appearing, Pain Distress - MILD Vital Signs: Initial Vital Signs Temp 98.4 F 11/02/18 19:19 Pulse 84 11/02/18 19:19 Resp 18 11/02/18 19:19 BP 135/83 11/02/18 19:19 Pulse Ox 95 11/02/18 19:19 Vital Signs Reviewed: Yes Eye Exam: Normal Eyes: Positive: Conjunctiva Clear. Negative: Conjunctiva Inflamed, Discharge ENT Exam: Normal ENT: Positive: Pharynx normal, Nasal congestion, Nasal drainage, TMs normal Neck exam: Normal Neck: Positive: Supple Respiratory: Positive: Lungs clear, Normal breath sounds, No respiratory distress Cardiovascular: Positive: RRR Musculoskeletal Exam: Normal Musculoskeletal: Positive: Strength Intact, ROM Intact Neurological Exam: Normal Neurological: Positive: Alert, Muscle Tone Normal Psychological Exam: Normal Psychological: Positive: Age Appropriate Behavior Skin Exam: Normal Headache Course/Dx - Course Course Of Treatment: We discussed the possible causes of the pain. The pain distribution is in the left maxillary sinus and behind the left eye. Patient denies any eye pain. Pupils are equal and reactive Globe is intact. She also reports yellow-green rhinorrhea and a chronic history of sinus issues. At this time we'll treat for sinusitis. Patient says that a azithromycin usually helps her and so therefore we will prescribe that. I encouraged saline nasal spray and hot steam and follow-up with her primary care physician. Follow up sooner if worse or any questions or concerns. I let her know that if she started with eye pain she needs to be seen by ophthalmology. - Differential Dx/Diagnosis Provider Diagnosis: Sinusitis, Headache Discharge - Sign-Out/Discharge Documenting (check all that apply): Patient Departure All imaging exams completed and their final reports reviewed: No Studies - Discharge Plan Condition: Stable Disposition: HOME Prescriptions: Azithromyxin ROBERTO (NF) [Z-Roberto (Zithromax) 250 mg tabs #6] 2 tab PO .TODAY, THEN 1 DAILY #6 tab Patient Education Materials: Sinusitis (ED), Acute Headache (ED) Referrals: Sj Chung NP [Primary Care Provider] - [facility] [Provider Group] Additional Instructions: FOLLOW UP WITH YOUR DOCTOR IF NOT COMPLETELY IMPROVED. SEE OPHTHALMOLOGY IF YOU HAVE EYE PAIN. GET RECHECKED FOR ANY WORSENING OF YOUR CONDITION OR QUESTIONS OR CONCERNS. - Billing Disposition and Condition Condition: STABLE Disposition: Home
== END 2018-11-02 19:40 | disposition home or self-care (01) ==
LOC: UCEAST 18:14
DX: R51 Headache (principal); J32.9 Chronic sinusitis, unspecified; F17.210 Nicotine dependence, cigarettes, uncomplicated; J45.909 Unspecified asthma, uncomplicated; Z88.0 Allergy status to penicillin; Z88.5 Allergy status to narcotic agent; Z88.1 Allergy status to other antibiotic agents
CPT/HCPCS: 99212; G0463

== ENCOUNTER 2019-04-02 17:41 | Emergency (ER) | payer OTHER ==
[2019-04-02 18:06] VITALS: BP 145/81
--- NOTE | 2019-04-02 18:39 | UC ---
Complaint Female HPI - HPI Summary HPI Summary: 58-year-old female who has had some burning on urination over the past 2 days. She does not have a history of urinary tract infections. She denies any abnormal vaginal discharge however she does state that she became sexually active over the past 4 weeks. She is sexually active with one partner. - History Of Current Complaint Chief Complaint: UCGU Stated Complaint: BURNING URINATION Time Seen by Provider: 04/02/19 18:00 Hx Obtained From: Patient Hx Last Menstrual Period: erratic ?: No Onset/Duration: Gradual Onset Timing: Intermittent Severity Initially: Mild Severity Currently: Mild Pain Intensity: 0 Character: Burning Aggravating Factor(s): Urination Alleviating Factor(s): Nothing Associated Signs And Symptoms: Negative: Fever, Vaginal Bleeding/Discharge, Vaginal Discharge, Genital Blisters - Allergies/Home Medications Allergies/Adverse Reactions: Allergies Allergy/AdvReac Type Severity Reaction Status Date / Time codeine Allergy Headache Verified 04/02/19 18:07 Penicillins Allergy Anaphylatic Verified 04/02/19 18:07 Shock erythromycin Allergy GI Upset Uncoded 11/02/18 19:24 PMH/Surg Hx/FS Hx/Imm Hx Previously Healthy: Yes Endocrine History: Thyroid Disease Respiratory History: Asthma - Surgical History Surgical History: Yes Surgery Procedure, Year, and Place: L knee surgery 2008 torn meniscus; tonsils; knee surgery right 2018 - Family History Known Family History: Positive: None Negative: Hypertension Family History: no medical issues reported in family lineage - Social History Alcohol Use: Rare Substance Use Type: None Smoking Status (MU): Heavy Every Day Tobacco Smoker Type: Cigarettes Amount Used/How Often: 1 ppd Length of Time of Smoking/Using Tobacco: 37 years Have You Smoked in the Last Year: Yes Household Exposure Type: Cigarettes - Immunization History Most Recent Tetanus Shot: less then 10 years Hx Tetanus, Diphtheria Vaccination: Yes Vaccination Up to Date: Yes Review of Systems All Other Systems Reviewed And Are Negative: Yes Genitourinary: Positive: Dysuria, Frequency. Negative: Vaginal/Penile Burning, Vaginal/Penile Itching, Vaginal/Penile Discharge, Vaginal/Penile Pain, Vaginal/ Penile Tenderness, Abnormal Bleeding - Her last Pap smear was several years ago and she has not had regular visits to her [facility] TE[facility] physician. Is Patient Immunocompromised?: No Physical Exam Triage Information Reviewed: Yes Appearance: Well-Appearing, No Pain Distress, Well-Nourished Vital Signs: Initial Vital Signs Temp 97.7 F 04/02/19 18:00 Pulse 67 04/02/19 18:00 Resp 12 04/02/19 18:00 BP 145/81 04/02/19 18:00 Pulse Ox 99 04/02/19 18:00 Vital Signs Reviewed: Yes Eyes: Positive: Conjunctiva Clear Neck: Positive: Supple, Nontender, No Lymphadenopathy Respiratory: Positive: Lungs clear, Normal breath sounds, No respiratory distress, No accessory muscle use Cardiovascular: Positive: RRR, No Murmur, Pulses Normal, Brisk Capillary Refill Abdomen Description: Positive: Nontender, No Organomegaly, Soft. Negative: CVA Tenderness (R), CVA Tenderness (L) Bowel Sounds: Positive: Present Musculoskeletal Exam: Normal Neurological Exam: Normal Psychological Exam: Normal Skin Exam: Normal Complaint Female Dx - Course Course Of Treatment: Patient is comfortable here. Her urinalysis was negative. I am sending the urine for GC/Chlamydia. I advised her to start getting regular [employer] TE[employer] checkups and she has had 9 children her lifetime. She again denied any abnormal vaginal discharge. - Differential Dx/Diagnosis Provider Diagnosis: Dysuria Discharge - Sign-Out/Discharge Documenting (check all that apply): Patient Departure All imaging exams completed and their final reports reviewed: No Studies - Discharge Plan Condition: Fair Disposition: HOME Patient Education Materials: Dysuria (ED) Referrals: Sj Chung MACHINE CLOTHING REPLACER [Primary Care Provider] - Additional Instructions: Increase fluids, follow-up with your primary care provider or MANUAL QA TESTER in 3 or 4 days if no improvement. We will call you with the test results. - Billing Disposition and Condition Condition: FAIR Disposition: Home
[2019-04-05 13:19] LABS: Neisseria gonorrhoeae (GC) RNA Negative (Negative)
== END 2019-04-02 18:59 | disposition home or self-care (01) ==
LOC: UCEAST 17:41
DX: R30.0 Dysuria (principal); E07.9 Disorder of thyroid, unspecified; J45.909 Unspecified asthma, uncomplicated; F17.210 Nicotine dependence, cigarettes, uncomplicated; Z88.5 Allergy status to narcotic agent; Z88.0 Allergy status to penicillin
CPT/HCPCS: 81003; 87491; 87591; 99201; G0463

== ENCOUNTER 2019-04-23 08:09 | Emergency (ER) | payer OTHER ==
[2019-04-23] MEDS ORDERED: Acetaminophen TAB* 325 MG PO ONE (10:23)
--- NOTE | 2019-04-23 10:30 | UC ---
Hand/Wrist HPI - HPI Summary HPI Summary: YESTERDAY PATIENT TRIPPED ON SOME RUGS AND FELL FORWARD ONTO A HARDWOOD FLOOR. CAUGHT HERSELF WITH HER HANDS AND NOW HAS RIGHT WRIST PAIN AND BRUISING. ALSO FEEL STIFF IN HER UPPER BACK. NO HEAD INJURY OR LOC. - History Of Current Complaint Chief Complaint: UCBackPain Stated Complaint: HAND AND ARM INJURY Time Seen by Provider: 04/23/19 09:51 Hx Obtained From: Patient Hx Last Menstrual Period: erratic Onset/Duration: Sudden Onset, Lasting Days - 1 DAY, Still Present Severity Initially: Moderate Severity Currently: Moderate Pain Intensity: 7 Pain Scale Used: 0-10 Numeric Character Of Pain: Sharp Aggravating Factor(s): Movement Alleviating Factor(s): Nothing Associated Signs And Symptoms: Positive: Swelling, Bruising. Negative: Numbness /Tingling Related History: Dominant Hand Right - Allergies/Home Medications Allergies/Adverse Reactions: Allergies Allergy/AdvReac Type Severity Reaction Status Date / Time codeine Allergy Headache Verified 04/23/19 08:27 Penicillins Allergy Anaphylatic Verified 04/23/19 08:27 Shock erythromycin Allergy GI Upset Uncoded 11/02/18 19:24 Home Medications: Home Medications Ibuprofen TAB* [Advil TAB*] 600 mg PO Q6HR PRN 04/23/19 [History Confirmed 04/23] PMH/Surg Hx/FS Hx/Imm Hx Endocrine History: Hypothyroidism Respiratory History: Asthma - Surgical History Surgical History: Yes Surgery Procedure, Year, and Place: L knee surgery 2008 torn meniscus; tonsils; knee surgery right 2018 - Family History Known Family History: Positive: None Negative: Hypertension Family History: no medical issues reported in family lineage - Social History Alcohol Use: Rare Substance Use Type: None Smoking Status (MU): Heavy Every Day Tobacco Smoker Type: Cigarettes Amount Used/How Often: 1 ppd Length of Time of Smoking/Using Tobacco: 37 years Have You Smoked in the Last Year: Yes Household Exposure Type: Cigarettes - Immunization History Most Recent Tetanus Shot: less then 10 years Hx Tetanus, Diphtheria Vaccination: Yes Vaccination Up to Date: Yes Review of Systems All Other Systems Reviewed And Are Negative: Yes Constitutional: Positive: Negative Skin: Positive: Bruising Respiratory: Positive: Negative Cardiovascular: Positive: Negative Gastrointestinal: Positive: Negative Musculoskeletal: Positive: Arthralgia, Decreased ROM, Edema Physical Exam Triage Information Reviewed: Yes Appearance: Well-Appearing, No Pain Distress, Well-Nourished Vital Signs: Initial Vital Signs Temp 97.5 F 04/23/19 08:20 Pulse 65 04/23/19 08:20 Resp 12 04/23/19 08:20 BP 177/83 04/23/19 08:20 Pulse Ox 95 04/23/19 08:20 Vital Signs Reviewed: Yes Eyes: Positive: Conjunctiva Clear ENT: Positive: Hearing grossly normal Neck: Positive: Supple Respiratory: Positive: No respiratory distress, No accessory muscle use Cardiovascular: Positive: Pulses Normal Abdomen Description: Positive: Soft Musculoskeletal: Positive: ROM Limited @ - RIGHT WRIST, Edema @ - SLIGHTLY SWOLLEN RIGHT WRIST, Other: - TTP DIFFUSELY RIGHT WRIST Neurological: Positive: Alert Psychological: Positive: Age Appropriate Behavior Skin: Positive: Other - MILD BRUISING VOLAR ASPECT RIGHT WRIST Diagnostics - Radiology RIGHT WRIST XRAYS Radiology Interpretation Completed By: Radiologist Summary of Radiographic Findings: NO ACUTE OSSEOUS INJURY Hand/Wrist Course/Dx - Differential Dx/Diagnosis Provider Diagnosis: Contusion of right wrist Discharge - Sign-Out/Discharge Documenting (check all that apply): Patient Departure All imaging exams completed and their final reports reviewed: Yes - Discharge Plan Condition: Stable Disposition: HOME Patient Education Materials: Contusion in Adults (ED), Wrist Sprain (ED) Forms: *Work Release Referrals: Sj Chung NP [Primary Care Provider] - 2 Days Katy White MD [Medical Doctor] - If Needed Additional Instructions: XRAY TODAY NEGATIVE FOR FRACTURE OR DISLOCATION. YOUR SYMPTOMS SHOULD IMPROVE SIGNIFICANTLY OVER THE NEXT 1-2 WEEKS. IF YOU DO NOT IMPROVE EXPECTED FOLLOW- UP WITH YOUR PCP OR ORTHO. YOU MAY BENEFIT FROM REPEAT IMAGING AT THAT TIME. OTC IBUPROFEN OR ALEVE NEEDED FOR DISCOMFORT. REST, ICE, COMPRESS, ELEVATE. WEAR THE SPLINT AT NIGHT AND DURING THE DAY NEEDED FOR SYMPTOM RELIEF. BE SURE TO GO THROUGH SLOW RANGE OF MOTION AND STRETCHING EXERCISES DAILY YOU ARE ABLE TO PREVENT STIFFENING UP AND MAKING THE DISCOMFORT WORSE. YOUR BLOOD PRESSURE WAS ELEVATED TODAY (177/83). I RECOMMEND YOU GET A BLOOD PRESSURE MONITOR AND CHECK YOUR BLOOD PRESSURE DAILY. KEEP A LOG AND FOLLOW UP WITH YOUR PCP IN A FEW DAYS TO RECHECK AND DISCUSS POSSIBLE TREATMENT. - Billing Disposition and Condition Condition: STABLE Disposition: Home
[2019-04-23 10:34] VITALS: BP 171/76
== END 2019-04-23 10:48 | disposition home or self-care (01) ==
LOC: UCEAST 08:09
DX: S60.211A Contusion of right wrist, initial encounter (principal); W18.09XA Striking against other object with subsequent fall, initial encounter; Y92.9 Unspecified place or not applicable; E03.9 Hypothyroidism, unspecified; J45.909 Unspecified asthma, uncomplicated; F17.210 Nicotine dependence, cigarettes, uncomplicated; Z88.5 Allergy status to narcotic agent; Z88.0 Allergy status to penicillin
CPT/HCPCS: 99213; A9270-GY; G0463